=== PATIENT | male | born 1975 | race Caucasian/White ===

== ENCOUNTER 2019-04-25 08:58 | Outpatient (RCR) | payer OTHER, SELFPAY ==
--- NOTE | ~2019-04-25 | XR_ITS ---
XR abdomen/kub 1V DATE: 04/25/2019 09:14 INDICATION: Left kidney calculus. Status post lithotripsy. TECHNIQUE: AP projection, 2 views COMPARISON: 10/28/2018 KUB FINDINGS: A small calcifications are again noted overlying both renal silhouette consistent with bila teral nephrolithiasis. Several calcified pelvic phleboliths are again noted. No apparent ureteral luciana cified calculus is identified. No visceromegaly is detected. The psoas shadows are intact. There is a prominent amount of fecal mate rial in the rectum and colon but no evidence of bowel obstruction. IMPRESSION: Bilateral nephrolithiasis Reviewed, dictated and finalized at [facility]. Reviewed, dictated and finalized at [facility]. RETTE CATCHER IMPRESSION: Bilateral nephrolithiasis
== END 2019-07-24 23:59 | disposition home or self-care (01) ==
LOC: ANHIMG 08:58
PROVIDERS: PCP Family Medicine; Visit Provider Urology
DX: N20.0 Calculus of kidney (principal)
CPT/HCPCS: 74018

== ENCOUNTER 2019-11-21 13:32 | Outpatient (CLI) | payer OTHER, SELFPAY ==
--- NOTE | ~2019-11-21 | XR_ITS ---
EXAMINATION: CT abdomen pelvis wo/w con, XR abdomen/kub 1V DATE: 11/21/2019 14:13 INDICATION: Macroscopic hematuria TECHNIQUE: 1. Computed tomography (CT) of the abdomen and pelvis was performed without intravenous contrast. CT of the abdomen and pelvis was then performed with a total of 130 mL Omnipaque-350 intravenous contras t using a double-bolus technique for simultaneous opacification of the renal parenchyma and renal col lecting system. Maximum intensity projection images of the collecting system were created from the vo lumetric source images by the technologist at a separate workstation. Automated exposure control and iterative reconstruction technique were employed. The dose-length product was 765.13 mGy-cm. 2. AP view of the abdomen and pelvis was obtained on 2 radiographs. COMPARISON: CT dated 09/24/2018 and radiograph dated 04/25/2019 FINDINGS: CT UROGRAM: Lung bases are clear. Heart size is normal. No pericardial or pleural effusion. Liver, gallbladder, s pleen, pancreas and bilateral adrenal glands are normal. Bowels including the appendix are normal. Symmetric parenchymal enhancement at both kidneys. 7 mm low-attenuation cyst at the upper pole of the left kidney and 8 mm nonenhancing hyperdense cyst at the lateral interpolar region of the right kidn ey. Bilateral nephrolithiasis with a couple 2-3 mm stones in the right kidney and or stones in the le ft kidney measuring 1-3 mm. 4 mm partially obstructing stone in the distal left ureter approximately 1.5 cm from the left ureterovesicular junction with mild left hydronephrosis but with also with a mor e distal left-sided ureteral jet. Bilateral ureters are opacified in their entirety with no other kisha ling defects or urothelial irregularities. Bladder is normal. Prostatomegaly measuring 5.3 x 3.7 cm. Partially visualized right hydrocele. No fr ee intraperitoneal gas or fluid. No pathologically enlarged abdominal or pelvic lymphadenopathy. Mild thoracolumbar dextrocurvature. ABDOMEN RADIOGRAPH(S): The stones at both kidneys are visible on the plain radiographs. The stone in the distal left ureter is also subtly visible but difficult to distinguish from the superimposed stool in the sigmoid colon. 3 phleboliths in the pelvis. Normal bowel gas pattern. IMPRESSION: 1. Lateral nephrolithiasis with partially obstructing 4 mm stone in the distal left ureter with mild left hydronephrosis. Line 2. Prostatomegaly. Reviewed, dictated and finalized at [facility]. IMPRESSION: 1. Lateral nephrolithiasis with partially obstructing 4 mm stone in the distal left ureter with mild left hydronephrosis. Line 2. Prostatomegaly.
== END 2019-11-21 13:33 | disposition home or self-care (01) ==
PROVIDERS: PCP Family Medicine; Visit Provider Urology
DX: R31.29 Other microscopic hematuria (principal); N40.0 Benign prostatic hyperplasia without lower urinary tract symptoms; N20.0 Calculus of kidney
CPT/HCPCS: 74018; 74178; Q9967

== ENCOUNTER 2019-11-25 05:01 | Day surgery (SDC) | payer OTHER, SELFPAY ==
[2019-11-24 10:55] VITALS: BMI 21.0
[2019-11-25] VITALS (7 sets, daily range): BP systolic 106–133; BP diastolic 71–97; PULSE 57–670; RESP 10–16; TEMP 36.4–36.5; O2SAT 98–100
--- NOTE | ~2019-11-25 | XR_ITS ---
EXAMINATION: XR fluoroscopy no charge DATE: 11/25/2019 13:23 INDICATION: Left ureteral stone extraction TECHNIQUE: 3 fluoroscopic images of the abdomen and pelvis were obtained during procedure performed delmy Clark. Radiologist was not present for the imaging or procedure. The amount of fluoroscopy cece e used during this procedure was 0.2 minutes. COMPARISON: CT dated 11/21/2019 FINDINGS/IMPRESSION: Paste Up Artist image demonstrates a small opacity near the left ureterovesicular junction which is not seen on the final images suggesting extraction of the prior ureteral stone. See procedure note for further d etail. Reviewed, dictated and finalized at [facility].
--- NOTE | 2019-11-25 07:05 | WPDHPUPDATE1 ---
History and Physical Update Update Date/Time: 11/25/19 07:05 History and Physical has been reviewed, including an updated exam of the patient. There are NO changes in the patient's condition. Risks, benefits, and alternatives have been discussed and questions answered. Patient agrees to proceed with procedure.
[2019-11-25] MEDS: LACTATED RINGERS 1,000 ML 30 ML IV CONT (11:45)
--- NOTE | 2019-11-25 12:08 | P.PNAN_ITS ---
Anes - Initial Pre Proc Eval Procedure: Operation Date: 11/25/19 13:00 Proposed Procedures p Cystoscopy, Left Ureteroscopy, Left Retrograde Pyelogram, Left Stone Extraction, Possible Left Stent Placement - Alexis Clark MD s Possible Holmium Laser Procedure - Alexis Clark MD Date/Time: 11/25/19 12:08 Surgeon: Alexis Clark MD Pre Op Diagnosis: Left Distal Ureteral Stone Patient Data Age: 44 Gender: M Height: 1.83 m Weight: 71 kg Last Vital Signs Temp 36.5 C 11/25/19 11:59 Pulse 82 11/25/19 11:59 Resp 16 11/25/19 11:59 BP 133/92 H 11/25/19 11:59 Pulse Ox 100 11/25/19 11:59 Allergies Allergy/AdvReac Type Severity Reaction Status Date / Time No Known Allergies Allergy Verified 11/25/19 11:39 Home Medications Medication Instructions Recorded Confirmed Type finasteride 5 mg PO DAILY 11/24/19 11/25/19 History multivitamin 1 tablet PO DAILY 11/24/19 11/25/19 History Patient hx anesthesia problems: none Family hx anesthesia problems: none [facility] Past Medical History Medical History (Updated 11/25/19 @ 12:03 by Andrzej Lehman DO) Anxiety BPH (benign prostatic hyperplasia) Depression Family History Family History (Updated 02/02/14 @ 07:13 by DOCTOR UNKNOWN) Father Family history of coronary artery disease Mother Family history of coronary artery disease Social History Social History Smoking status: Never smoker Second hand tobacco smoke exposure: No Alcohol intake: current Anes - Eval Final PreProcedure Day of Procedure 11/25/19 12:08 Patient weight: normal Heart: regular rate and rhythm Lungs: clear to auscultation and normal air movement Airway: Mallampati scale class II Neurological: alert and oriented Last oral intake: >/= 8 hours ASA classification: II Emergent: no Anesthetic plan: proceed Anesthesia type and monitoring: general LMA and standard monitoring Informed Consent: The patient's anesthetic plan and its attendant risks and benefits were discussed with the patient/family/POA. Questions were solicited and answers provided to the satisfaction of the patient/family/POA.
[2019-11-25] MEDS: ceFAZolin 2 GM/D5W 50 ML 2 GM/50 ML BAG IVPB (12:54)
[2019-11-25] MEDS: LIDOCAINE HCL 2% GEL UROJET 10 ML PKG MUCOUS MEM (13:10)
[2019-11-25] MEDS: KETOROLAC 30 MG/ML VIAL (*BKC) IV PUSH (13:17)
--- NOTE | 2019-11-25 13:27 | P.OP_ITS ---
Procedure Note - Detailed Date of procedure: 11/25/19 Pre-op diagnosis: Left Distal Ureteral Stone Post-op diagnosis: same Procedure performed: Cystoscopy, left ureteroscopy with stone extraction Description of procedure: The patient was brought to the operative suite where he is prepped and draped in a routine sterile fashion while in the dorsal lithotomy position after the uneventful induction of a general LMA anesthetic. A 19F rigid cystoscope was placed in the bladder. There are no urethral strictures. His prostatic urethra measures, approximately, 1.5cm with no median lobe enlargement. The bladder mucosa was endoscopically normal without hyperemia or neoplasm. There was a single, orthotopic ureteral orifice bilaterally. A 0.035 glidewire was advanced into the left renal pelvis under fluoroscopy. The distal ureter was dilated with an 8F/10F ureteral dilator. Ureteroscopy was undertaken with a short, tapered, semi-rigid ureteroscope and the stone was extracted with ease using a 1.9F Escape disposable stone basket. Due to the ease of this manipulation I opted not to place a ureteral stent. The patient's bladder was emptied and was taken to the recovery room having tolerated this procedure well. Anesthesia: GLMA Surgeon: Alexis Clark MD Quilting Machine Helper: None Estimated blood loss (mL): 0 Drains: No Packing: No Pathology: yes (Left ureteral stone) Complications: No immediate complications Condition: stable Disposition: PACU
== END 2019-11-25 15:10 | disposition home or self-care (01) ==
PROVIDERS: PCP Family Medicine; Visit Provider Urology
PROC: (CPT 52352; principal; 2019-11-25 13:00)
DX: N20.1 Calculus of ureter (principal); N40.0 Benign prostatic hyperplasia without lower urinary tract symptoms; F41.8 Other specified anxiety disorders
CPT/HCPCS: 52352; 82365; 88300; A9270; C1769; J0690; J1100; J1885; J2250; J2405; J2704; J3010; J7120

== ENCOUNTER 2020-04-30 09:23 | Outpatient (CLI) | payer OTHER, SELFPAY ==
--- NOTE | ~2020-04-30 | XR_ITS ---
XR abdomen/kub 1V 04/30/2020 09:50 Indication: Renal stones Procedure: KUB Comparison: Comparison to multiple prior studies sequentially, with oldest reviewed study dated 10/01. Findings: There are bilateral renal stones are not significantly changed allowing for technique. Marquita l gas pattern nonobstructive. There are pelvic phleboliths. No acute osseous abnormality. Impression: 1: Bilateral nephrolithiasis. Reviewed, dictated and finalized at location [facility]. NEERING SPECIALIST TECHNICIAN Impression: 1: Bilateral nephrolithiasis.
== END 2020-04-30 09:24 | disposition home or self-care (01) ==
PROVIDERS: Visit Provider Urology
DX: N20.0 Calculus of kidney (principal)
CPT/HCPCS: 74018

== ENCOUNTER 2021-04-30 09:07 | Outpatient (CLI) | payer OTHER, SELFPAY ==
--- NOTE | ~2021-04-30 | XR_ITS ---
EXAMINATION: XR abdomen/kub 1V EXAM DATE: 04/30/2021 09:25 INDICATION: Left kidney stone follow-up. TECHNIQUE: Frontal projection of the upper abdomen, frontal projection lower abdomen/pelvis for inter pretation. Comparison is made to prior examination from 04/30/20. FINDINGS: Several punctate bilateral calyceal stones suspected, unchanged from prior study. Nonobstru ctive bowel gas pattern. Pelvic phleboliths. Moderate amount of colonic stool and gas. Lung bases unr emarkable. There are mild bony degenerative changes. IMPRESSION: Punctate bilateral nephrolithiasis unchanged. Reviewed, dictated and finalized at location [facility]. SPINNER
== END 2021-04-30 09:08 | disposition home or self-care (01) ==
LOC: ANHIMG 09:10
PROVIDERS: PCP Internal Medicine; Visit Provider Urology
DX: N20.0 Calculus of kidney (principal)
CPT/HCPCS: 74018

== ENCOUNTER 2022-06-24 09:38 | Outpatient (CLI) | payer OTHER, SELFPAY ==
--- NOTE | ~2022-06-24 | XR_ITS ---
Supine and upright views of the abdomen Clinical history: BPH, urinary obstruction COMPARISON: 04/30/2021 Findings: Bowel gas pattern is nonspecific. No evidence for obstruction or free air. Probable bilater al renal stones noted. Osseous structures are intact. Impression: Probable bilateral nephrolithiasis. Reviewed, dictated and finalized at [facility]. ERIES MANAGER Impression: Probable bilateral nephrolithiasis.
== END 2022-06-24 09:39 | disposition home or self-care (01) ==
PROVIDERS: PCP Internal Medicine; Visit Provider Urology
DX: N40.1 Benign prostatic hyperplasia with lower urinary tract symptoms (principal)
CPT/HCPCS: 74018

== ENCOUNTER 2023-07-27 14:27 | Outpatient (CLI) | payer OTHER, SELFPAY ==
--- NOTE | ~2023-07-27 | XR_ITS ---
Supine and upright views of the abdomen Clinical history: Urinary obstruction, BPH COMPARISON: 06/24/2022 Findings: Bowel gas pattern is nonspecific. No evidence for obstruction or free air. Possible punctat e right renal stone. Osseous structures are intact. Impression: Possible punctate right renal stone. Reviewed, dictated and finalized at [facility]. LATION HEALTH MANAGER Impression: Possible punctate right renal stone.
== END 2023-07-27 14:28 | disposition home or self-care (01) ==
LOC: ANHIMG 14:29
PROVIDERS: PCP Internal Medicine; Visit Provider Urology
DX: N40.1 Benign prostatic hyperplasia with lower urinary tract symptoms (principal)
CPT/HCPCS: 74018